=== PATIENT | male | born 1970 | race Caucasian/White ===

== ENCOUNTER 2016-08-13 12:32 | Emergency (ER) | payer BC ==
[~2016-08-13] VITALS: Wt 91.0 kg
[~2016-08-13 12:32] MED LIST: PANT40TA3 PO
[2016-08-13] MEDS ORDERED: LORA10CA PO (13:28)
[2016-08-13] MEDS ORDERED: KETO5DRO58 OP (13:28)
--- NOTE | 2016-08-13 13:40 | ERD ---
ER Documentation Chief Complaint Date/Time DATE: 08/13/16 TIME: 13:31 Chief Complaint LEFT EYE PAIN WITH D/C SINCE YESTERDAY HPI 45-year-old male complaining of left eye lid swollen and irritated since yesterday. He woke up this morning was some crusting in the left eye. The last several days he has frequent sneezing and itchy nose. Denies cough or shortness of breath. Denies fever or chills. Denies blurry vision. Denies purulent discharge from the eye. ROS All systems reviewed and are negative except as per history of present illness. Medications Home Meds Active Scripts Ketotifen Fumarate (ZADITOR) 5 Ml Drops, 5 ML OP Q12, #1 BOTTLE Prov:BELLA SAENZ. WEB MOBILE DESIGNER 08/13/16 Loratadine* (Claritin*) 10 Mg Capsule, 10 MG PO DAILY, #30 CAP Prov:BELLA SAENZ. PAM 08/13/16 Pantoprazole* (Protonix*) 40 Mg Tablet.dr, 40 MG PO DAILY, #30 TAB Prov:EVER PETERSON MD 12/22/15 Allergies Allergies: Uncoded Allergies: PCN (Allergy, Unknown, HIVES, 12/22/15) PMhx/Soc Hx Alcohol Use: Yes (BEERS, ) Hx Substance Use: Yes (MARIJUANA) Physical Exam Vitals Vital Signs Date Time Temp Pulse Resp B/P Pulse Ox O2 Delivery O2 Flow Rate FiO2 08/13/16 12:52 98.0 87 18 123/ 71 Physical Exam General impression: Well-developed, well-nourished. Alert, oriented, in no acute distress Head: Normocephalic, atraumatic. Eyes: PERRL, EOM normal. Sclerae are normal. Left upper eyelid mildly puffy , nontender. Slight injection in the left conjunctiva. ENT: Nasal mucosa, oral mucosa and oropharynx are normal. Neck: Supple, nontender. No lymphadenopathy. No nuchal rigidity. Respiration: Normal respiratory effort. Lungs clear to auscultate bilaterally. No wheezes, rales or rhonchi. Cardiovascular: Regular rate and rhythm. No murmurs or extra heart sounds. Neuro: Mental status normal, speech normal. LOFT WORKER HEAD grossly intact. Skin: Normal turgor. No rash or lesions. Psych: Normal mood and affect. Procedures/MDM Well-appearing 45-year-old male presented ED was left eye irritation and swelling 2 days. Patient symptoms and exam findings are consistent with allergic conjunctivitis. Low suspicion for bacterial conjunctivitis. I doubt foreign body, preorbital cellulitis, or acute angle-closure glaucoma. Patient appears well, stable for discharge and outpatient management. Medical decision making shared with patient and family. Education provided to patient and family. Patient and family expressed understanding of the plan. Medications on discharge: Zaditor ophthalmic. Follow-up: Primary care provider in 2-3 days or return to ED if worse. Departure Diagnosis: Primary Impression: Allergic conjunctivitis of left eye Condition: Good Patient Instructions: Conjunctivitis, Allergic Additional Instructions: Call your primary care doctor TOMORROW for an appointment during the next 2-3 days.See the doctor sooner or return here if your condition worsens before your appointment time. BELLA SAENZ NP Aug 13, 2016 13:39
== END 2016-08-13 13:41 | disposition home or self-care (01) ==
LOC: FTE 12:32
DX: H10.12 Acute atopic conjunctivitis, left eye (principal)
CPT/HCPCS: 99283

== ENCOUNTER 2018-07-29 04:12 | Emergency (ER) | payer BC ==
[~2018-07-29] VITALS: Ht 172.7 cm; Wt 108.0 kg
[~2018-07-29 04:12] MED LIST changes: +KETO5DRO71 OP; +LORA10CA PO
[2018-07-29 04:20] VITALS: Ht 172.7 cm; Wt 108.0 kg
[2018-07-29 05:59] VITALS: BP 114/99; PULSE 62; RESP 13
--- NOTE | 2018-07-29 06:31 | ERD ---
ER Documentation Chief Complaint Chief Complaint palpitations, dizzy x 3 weeks HPI This is a 47-year-old male who presents to the emergency room for evaluation of heart palpitations. The patient states that he has had a heart palpitations for the past 4 months and states that they are worse in the middle of the night. The patient denies any chest pain or shortness of breath. He states that he came to the ER today for evaluation of his heart palpitations and denies any alcohol use or drug use. The patient denies any fevers chills nausea or vomiting at this time. ROS All systems reviewed and are negative except as per history of present illness. Medications Home Meds Active Scripts Ketotifen Fumarate (ZADITOR) 5 Ml Drops, 5 ML OP Q12, #1 BOTTLE Prov:BELLA SAENZ. TELEGRAPH SERVICE RATER 08/13/16 Loratadine* (Claritin*) 10 Mg Capsule, 10 MG PO DAILY, #30 CAP Prov:BELLA SAENZ. PAM 08/13/16 Pantoprazole* (Protonix*) 40 Mg Tablet.dr, 40 MG PO DAILY, #30 TAB Prov:EVER PETERSON MD 12/22/15 Allergies Allergies: Uncoded Allergies: PCN (Allergy, Unknown, HIVES, 12/22/15) PMhx/Soc Anesthesia Reaction: No Hx Neurological Disorder: No Hx Respiratory Disorders: No Hx Cardiac Disorders: No Hx Psychiatric Problems: No Hx Miscellaneous Medical Probl: Yes (GERD) Hx Alcohol Use: Yes (BEERS, ) Hx Substance Use: Yes (MARIJUANA) Hx Tobacco Use: No Smoking Status: Never smoker Physical Exam Vitals Vital Signs Date Temp Pulse Resp B/P (MAP) Pulse Ox O2 O2 Flow FiO2 Time Delivery Rate 07/29/18 Nasal 06:27 Cannula 07/29/18 62 13 114/99 98 Room Air 05:59 (104) 07/29/18 97.5 78 18 146/89 100 04:41 (108) 07/29/18 97.5 73 18 146/89 100 04:20 (108) Physical Exam INITIAL VITAL SIGNS: Reviewed by me GENERAL: The patient is well developed and appropriate for usual state of health in no apparent distress HEENT: Pupils equal, round, and reactive to light. EOMI. There is no scleral icterus. NECK: C-spine is soft and supple, there is no meningismus. There is no cervical lymphadenopathy. LUNGS: Clear to auscultation bilaterally. There are no rales, wheezes or rhonchi. HEART: Regular rate and rhythm, no murmurs, clicks, rubs or gallops. ABDOMEN: Soft, non-tender, non-distended. There are bowel sounds in all four quadrants. No rebound or guarding. EXTREMITIES: There is no peripheral cyanosis or edema. No focal swelling or erythema. NEUROLOGICAL: The patient moves all four extremities with 5/5 strength. Cranial nerves II - XII are intact. Normal gait. Alert and oriented SKIN: There is no apparent rash or petechiae. HEME/LYMPHATIC: There is no evidence of excessive bruising or lymphedema. PSYCHIATRIC: The patient does appear to be slightly anxious Result Diagram: 07/29/185 07/29/18 0435 Results 24 hrs Laboratory Tests Test 07/29/18 04:35 White Blood Count 8.6 10^3/ul Red Blood Count 4.95 10^6/ul Hemoglobin 14.8 g/dl Hematocrit 42.7 % Mean Corpuscular Volume 86.3 fl Mean Corpuscular Hemoglobin 29.9 pg Mean Corpuscular Hemoglobin Concent 34.7 g/dl Red Cell Distribution Width 11.9 % Platelet Count 296 10^3/UL Mean Platelet Volume 10.2 fl Immature Granulocytes % 0.300 % Neutrophils % 59.0 % Lymphocytes % 25.3 % Monocytes % 10.8 % Eosinophils % 4.1 % Basophils % 0.5 % Nucleated Red Blood Cells % 0.0 /100WBC Immature Granulocytes # 0.030 10^3/ul Neutrophils # 5.1 10^3/ul Lymphocytes # 2.2 10^3/ul Monocytes # 0.9 10^3/ul Eosinophils # 0.4 10^3/ul Basophils # 0.0 10^3/ul Nucleated Red Blood Cells # 0.0 10^3/ul Sodium Level 143 mmol/L Potassium Level 3.9 mmol/L Chloride Level 108 mmol/L Carbon Dioxide Level 26 mmol/L Anion Gap 9 Blood Urea Nitrogen 19 mg/dl Creatinine 0.83 mg/dl Est Glomerular Filtrat Rate mL/min > 60 mL/min Glucose Level 102 mg/dl Calcium Level 9.7 mg/dl Troponin I < 0.012 ng/ml [facility] EKG: Rate/Rhythm: [Normal Sinus Rhythm] QRS, ST, T-waves: [No changes consistent w/ acute ischemia] Impression: [No evidence of ischemia or arrhythmia] Chest X-ray 1V Interpreted by me: Soft Tissue: No acute abnorma lities Bones: No acute abnormalities Mediastinum/Cardiac Silhouette/Lungs: [No acute abnormalities] This 47-year-old male presents to the emergency room for evaluation of heart palpitations that he has had for the past 4 months. On my exam the patient has no signs of arrhythmia on EKG, he is afebrile, nontoxic-appearing, and hemodynamically stable. Lab work is within normal limits including a troponin. Chest x-ray is clear. The patient does admit to drug use and I advised him that is likely the underlying reason for his heart palpitations. The patient could also have a component of anxiety. He is hemodynamically stable at this time and okay for outpatient follow-up and will be discharged. Differential diagnoses entertained was broad with potential high acuity. Patient has been evaluated for acute myocardial infarction, unstable angina, aortic dissection, pulmonary embolism, other intrathoracic and cardiac concerns. Ultimately the patient's evaluation is nondiagnostic. Based on the patient's lack of risk factors, as well as the patient's clinical, laboratory, and imaging data, the patient appears to be low risk for these high risk causes of chest pain. Departure Diagnosis: Primary Impression: Palpitations Condition: Stable GIBRAN QUINONEZ Jul 29, 2018 06:31
== END 2018-07-29 07:33 | disposition home or self-care (01) ==
LOC: E/R 04:12
DX: R00.2 Palpitations (principal)
CPT/HCPCS: 36415; 71045; 80048; 84484; 85025